=== PATIENT | male | born 1980 | race Caucasian/White ===

== ENCOUNTER 2019-11-27 13:17 | Emergency (ER) | payer BC, SELFPAY ==
--- NOTE | 2019-11-27 13:42 | PC.NURSE ---
LAB NOTIFIED OF COVID TEST ORDER
[2019-11-27 13:46] VITALS: BP 138/97; PULSE 107; RESP 20; TEMP 37.1; O2SAT 98; BMI 32.1
--- NOTE | 2019-11-27 13:51 | PC.NURSE ---
LAB AT BEDSIDE
--- NOTE | 2019-11-27 13:59 | HMH.EDUTC ---
[facility] [place] Disposition Clinical Impression: Exposure to COVID-19 virus Disposition: Home, Self-Care Condition on Discharge: Good Instructions: Preventing the Spread of Coronavirus Discharge Instructions Additional Instructions: You have been tested for COVID19. Please isolate yourself until these test results are received. Referrals: PCP,No [Primary Care Provider] - Time of Disposition: 14:03 Medical Decision Making - Jesus Inquiry Pt receiving controlled substance: No Vital Signs: 11/27/19 13:46 Temperature 98.7 F Temperature Source Oral Pulse Rate [Right Brachial] 107 H Respiratory Rate 20 Blood Pressure [Right Arm] 138/97 H Blood Pressure Mean [Right Arm] 110 Blood Pressure Source [Right Arm] Automatic Cuff Blood Pressure Position [Right Arm] Sitting 02 Sat by Pulse Oximetry 98 Oxygen Delivery Method Room Air Orders (Tests/Meds): ORDERS Category Date Time Status Coronavirus 19 Swab (OUTPT) Routine Lab 11/27/19 13:44 Ordered [facility] [place] HPI - General Stated complaint: fever,cough,loss of smell and taste Time Seen by Provider: 11/27/19 13:59 Mode of Arrival: Ambulatory Source of Information: Patient Limitations: No Limitations Description of Symptoms (Recalled from Triage Doc. by RN): PATIENT C/O FEVER, COUGH, SORE THROAT, BODY ACHES, LOWER BACK PAIN, AND DECREASED SMELL/TASTE SINCE SATURDAY. NO KNOWN DIRECT EXPOSURE TO COVID. WAS EXPOSED TO PATIENTS WITH COVID AT WORK HEENT Symptoms (Recalled from RN notes): Yes Resp Symptoms (Recalled from RN notes): Yes Skin Symptoms (Recalled from RN notes): No MS Symptoms (Recalled from RN notes): Yes Functional Status (Recalled from RN notes): WNL - History of Present Illness Provider Complaint: Fever, cough, body aches, sore throat and loss of taste and smell X 4 days. has been exposed to COVID19 thru work. He denies ear pain. Denies vomiting or diarrhea. Onset (ago): day(s) (4) Relieving factors: none Exacerbating factors: none Associated symptoms: cough, fever/chills Treatments prior to arrival: none - Related Data Home Medications Medication Instructions Recorded Confirmed Buprenorphine HCl/Naloxone HCl 0.75 each SL DAILY 11/27/19 11/27/19 [Suboxone 8 mg-2 mg Sl Film] Allergies Allergy/AdvReac Type Severity Reaction Status Date / Time amoxicillin [From Augmentin] Allergy Verified 11/27/19 13:50 clavulanic acid Allergy Verified 11/27/19 13:50 [From Augmentin] loratadine [From Claritin] Allergy Verified 11/27/19 13:50 Penicillins Allergy Verified 11/27/19 13:50 - Worker's Comp Is this a Worker's Comp case?: No H History - Hepatitis A Screen Drug use history?: No High risk sexual behaviors?: No History of sexually transmitted infection?: No Currently employed?: No Childcare worker?: No Do you have indoor plumbing?: Yes Do you have electricity?: Yes Attestation statement:: This patient has been screened for Hepatitis A risk factors. I have reviewed the patient's past medical history: Yes - Social History Alcohol Intake: never Occupational Status: other ROS Obtained: Yes All systems reviewed & no additional complaints - Constitutional Constitutional: Reports body ache, Reports fever(s), Denies lethargy, Denies malaise - Eyes Eyes: Denies eye discharge - ENT Ears, Nose, Mouth, and Throat: Denies nasal discharge, Denies sore throat, Denies vertigo/dizziness - Respiratory Respiratory: Yes cough, No dyspnea - Gastrointestinal Gastrointestingal: Denies: loose stools, vomiting Physical Exam - General General appearance: alert, in no apparent distress - Head Head exam: atraumatic, normocephalic, normal inspection - Eye Eye exam: Present: normal appearance, PERRL, EOMI - ENT ENT exam: Present: normal exam, normal oropharynx, mucous membranes moist, TM's normal bilaterally, normal external ear exam - Neck Neck exam: Present: normal inspection, full ROM, trachea midline. Absent:
[2019-11-27 14:08] VITALS: BP 138/97; PULSE 107; RESP 20; TEMP 37.1; O2SAT 98
== END 2019-11-27 14:10 | disposition home or self-care (01) ==
PROVIDERS: Emergency Provider Physician Assistant
DX: Z20.828 Contact with and (suspected) exposure to other viral communicable diseases (principal); R50.9 Fever, unspecified; R05 Cough; Z88.0 Allergy status to penicillin
CPT/HCPCS: 99201; U0003

== ENCOUNTER → 2020-10-25 11:04 | Outpatient (CLI) | payer BC, SELFPAY ==
--- NOTE | 2020-10-25 11:20 | XR_ITS ---
PROCEDURE: XR CHEST 2V CLINICAL HISTORY: CHEST PAIN COMPARISON: No exams were available for comparison FINDINGS: The cardiomediastinal silhouette and pulmonary vascularity are within normal limits. Minimal atelectatic or fibrotic change in the left lower lung zone. Lungs are otherwise clear.. No acute bony abnormalities. IMPRESSION: Minimal atelectatic or fibrotic change in the left lower lung otherwise negative Dictated by: Oneal Giles MD 10/25/2020 11:29 Oneal Giles MD in [place] 10/25/2020 11:29
[2020-10-25 11:39] LABS: Basophils # 0.1 K/mm3 (0-0.2); Basophils % 1.1 % (0.1-2.0); Eosinophils # 0.3 K/mm3 (0.0-0.4); Eosinophils % 4.9 % (0.1-12.0); Hemoglobin 14.3 g/dL (14.1-18.0); Lymphocytes # 1.8 K/mm3 (0.7-4.5); Lymphocytes % 34.6 % (10-50); Mean Corpuscular HGB Conc 33.2 g/dL (31.8-35.4); Mean Corpuscular Volume 90.5 fl (80-94); Mean Platelet Volume 7.1 fl (7.4-10.4); Monocytes # 0.4 K/mm3 (0.1-1.0); Monocytes % 7.3 % (1.7-9.3); Neutrophils # 2.8 K/mm3 (1.8-7.8); Neutrophils % 52.2 % (37.0-80.0); Platelet Count 286 K/mm3 (142-424); Red Blood Count 4.76 M/mm3 (4.60-6.20); Red Cell Distribution Width 12.5 % (11.5-17.5); White Blood Count 5.3 K/mm3 (4.8-10.8)
[2020-10-25 12:24] LABS: Chloride 102 mmol/L (98-107); Sodium 141 mmol/L (136-145)
[2020-10-25 12:25] LABS: Potassium 4.8 mmoL/L (3.5-5.1)
[2020-10-25 12:27] LABS: Alanine Aminotransferase 63 U/L (12-78); Albumin Level 4.6 g/dl (3.5-5.0); Albumin/Globulin Ratio 1.4 (1.1-1.8); Alkaline Phosphatase 85 U/L (38-126); Anion Gap 15.8 mEq/L (5-15); Aspartate Amino Transferase 50 U/L (17-59); Bilirubin,Total 0.5 mg/dl (0.2-1.3); Blood Urea Nitrogen 10 mg/dl (9-20); Calcium 9.5 mg/dl (8.4-10.2); Carbon Dioxide 28 mmol/L (22.0-30.0); Cholesterol 207 mg/dl (140-200); Estimated Glomerular Filt Rate 107 ml/min (>60); GFR (African American) 130 ML/MIN (>60); Globulin 3.3 g/dL (1.3-3.2); Glucose 119 mg/dl (74-100); Total Protein,Serum 7.9 g/dl (6.3-8.2); Triglycerides 77 mg/dl (30-150); VLDL Cholesterol 15 mg/dL (0-40)
[2020-10-25 12:28] LABS: HDL Cholesterol 41 mg/dl (40-60); Magnesium 1.9 mg/dl (1.6-2.3)
[2020-10-25 12:39] LABS: Direct LDL Cholesterol 151.83 mg/dL (100-129)
[2020-10-25 12:46] LABS: Hemoglobin A1C 5.9 % (4.0-6.0)
[2020-10-25 12:47] LABS: 25-OH Vitamin D, Total 18.9 ng/mL (30-100)
[2020-10-25 12:48] LABS: Triiodothryronine (T3) Uptake 29 % (23.5-40.5)
[2020-10-25 12:49] LABS: Free Thyroxine Index 3.5 ug/dL (5.93-13.13); T4 (Thyroxine) 11.9 ug/dl (5.53-11.0)
[2020-10-25 13:02] LABS: Thyroid Stimulating Hormone 5.11 uIU/mL (0.465-4.68)
[2020-10-25 13:56] LABS: Vitamin B12 536 pg/mL (239-931)
== END ==
PROVIDERS: Visit Provider Internal Medicine Adolescent Medicine
DX: R07.9 Chest pain, unspecified (principal); R00.0 Tachycardia, unspecified; R55 Syncope and collapse; E55.9 Vitamin D deficiency, unspecified
CPT/HCPCS: 36415; 71046; 80053; 80061; 82306; 82607; 83036; 83735; 84436; 84443; 84479; 85025

== ENCOUNTER → 2020-11-02 07:26 | Outpatient (CLI) | payer BC, SELFPAY ==
--- NOTE | 2020-11-02 | CA_ITS ---
APPROVED REPORT Exam: Exercise Treadmill Technologist: Mai Bond, Ht: 6 ft 2 in Wt: 272 lbs BSA: 2.48 m2 HR: 82 bpm BP: 172/105 mmHg Medical History Medications: Aspirin,,,,, Suboxone,,,,, Stress Test Details Test: Tigre HR Resting HR: 93 bpm Max Heart Rate (APMHR): 180.626909 bpm Max HR Achieved: 185 bpm Target HR (85% APMHR): 153.187234 bpm % of APMHR: 102.78 Recovery HR: 108 bpm BP Resting BP: 170/112 mmHg Max BP: 224/96 mmHg Recovery BP: 171.0/88.0 mmHg ECG Resting ECG: NSR, rightward axis, NST wave abns inferiorly, NS anterolateral ST abns. Clinical Exercise duration: 08:46 min Highest Stage Achieved: Exercise capacity: 10.1 METs Stress ECG Conclusion Exercised 8:46 on Tigre Protocol Max HR: 185 % of PM: 103% Max BP: 224/96 MET's: 10.1 Test stopped due to: SOA, fatigue Symptoms: L forearm pain. No CP. Arrythmias/Ectopy: Rare fusion beat. ST-T Changes: Exaggeration of baseline abns. Inferiorly and laterally. Conclusion: Non-diagnostic GXT, [place] images reported separately, Elevated resting BP. Test Summary REST . . . . . . . Sitting REST . . . . . . . Standing REST 04:12 0.0 0.0 93 . 170/112 . . Stage 1 01:00 10.0 1.7 120 . . . . Stage 1 02:00 10.0 1.7 143 . . . . Stage 1 03:00 10.0 1.7 143 . 198/100 . . Stage 2 01:00 12.0 2.5 158 . . . . Stage 2 02:00 12.0 2.5 165 . . . . Stage 2 03:00 12.0 2.5 174 . 208/ 96 . . Stage 3 01:00 14.0 3.4 176 . . . . Stage 3 02:00 14.0 3.4 179 . . . . Stage 3 02:46 14.0 3.4 184 . . . Stop exercise at 08:46 RECOVERY 01:00 0.0 0.0 158 . . . . RECOVERY 02:00 0.0 0.0 133 . 224/ 96 . . RECOVERY 03:00 0.0 0.0 117 . 179/108 . . RECOVERY 04:00 0.0 0.0 113 . 169/ 98 . . RECOVERY 05:00 0.0 0.0 107 . 169/ 98 . . RECOVERY 06:00 0.0 0.0 107 . 171/ 88 . . RECOVERY 06:13 0.0 0.0 104 . 171/ 88 . . Electronically signed by : Dickson Ortiz, 11/03/2020 13:36:49
--- NOTE | 2020-11-02 | CA_ITS ---
APPROVED REPORT EXAM: Comprehensive 2D, Doppler, and color-flow Echocardiogram Poacher Operator: Jacki Klein CRT Ht: 6 ft 2 in Wt: 272lbs BSA: 2.48 BP: 170/112 mmHg Indications: Chest Pain, Syncope 2D Dimensions LVOT 2.11 cm (M/F) 1.5-2.5 LA Volume 34.80 mL LA Volume Index 14.08 mL/m2 (M/F) 16-34 M-Mode Dimensions RVDd 2.72 cm (0.9-2.6) LA Diam 3.16 cm (1.9-4.0) LVDd 4.56 cm (3.5-5.7) Ao Diam 4.23 cm (2.0-3.7) LVDs 2.35 cm (3.5-5.7) IVSd 1.41 cm (0.6-1.1) PWd 0.91 cm (0.6-1.1) EF (Teich) 80.00% FS 48.50% EDV (Teich) 95.40 mL TAPSE 2.47 (<1.7) ESV (Teich) 19.10 mL LV Diastology E Decel Time 220.00 (160-240 msec) E/A Ratio 1.19 MED E' 7.80 (< 7 cm/sec) MED A' 9.70 cm/s E'/MED E' Ratio 9.49 (>14) LAT E' 10.80 (<10 cm/sec) LAT A' 10.00 cm/s E/LAT E' Ratio 6.85 (>14) Aortic Valve AO Peak GR. 4.70 mmHg Mitral Valve MV A Velocity 62.00 (40-130 cm/s) E/A Ratio 1.19 MV Decel. Time 220.00 (160-240 ms) Pulmonary Valve PV Peak Velocity 97.00 (50-150 cm/s) Tricuspid Valve TR P. Velocity 210.00 cm/s RAP Estimate 10.00 mmHg RVSP 27.60 mmHg Left Ventricle Left atrium is normal size, left ventricle is normal size, there is no concentric left ventricular hypertrophy, visually estimated ejection fraction 55% with no regional wall motion abnormality, diastolic parameters are within normal range. Right Ventricle Right atrium and right ventricle are normal size and contractility. Aortic Valve Aortic valve is grossly normal, there is no aortic stenosis or aortic insufficiency. Mitral Valve Mitral valve is grossly normal, there is trace mitral regurgitation. Tricuspid Valve Tricuspid valve grossly normal, there is trace tricuspid regurgitation, tricuspid regurgitation jet velocity is inadequate for calculation of the right ventricular systolic pressure. Pulmonic Valve Pulmonic valve is poorly visualized. Great Vessels Aortic root is normal size. Pericardium No significant pericardial effusion noted. Conclusion 1. Normal left ventricular size, preserved left ventricular systolic function, visually estimated ejection fraction 55% with no regional wall motion abnormality, diastolic parameters are within normal range. 2. Trace mitral and tricuspid regurgitation. 3. No significant pericardial effusion noted. Electronically signed by : Dickson Ortiz, 11/03/2020 16:06:12
--- NOTE | 2020-11-02 07:31 | NM_ITS ---
APPROVED REPORT Exam: Nuclear Stress Test Indication: HTN, TOB USE, FM HX,C.P., SOB, PALPITATIONS Patient Location: Outpatient Stress Tech: Mai [facility] Tech:Grecia Mcintosh, ARRT RT (R)(N)(M) Ht: 6 ft 2 in Wt: 272 lbs HR: 82 bpm BP: 171/105 mmHg BSA: 2.48 m2 BMI: 34.9 History: HTN, TOB USE, FM HX,C.P., SOB, PALPITATIONS Procedure: Patient exercised on Tigre protocol 8:46 minutes and sec, resting heart rate 82 bpm, resting blood pressure 171/105 mmHg, with exercise maximum heart rate achived was 184 bpm which is 103 % of the maximum predicted heart rate and blood pressure was 208/96 mmHg. Test was stopped due to lt forearm pain. Patient denied any complaint of chest pain. Patient has Good exercise capacity, achieved 10.1 METs of workload on treadmill, the blood pressure response to exercise was Hypertensive. Electrocardiogram Resting electrocardiogram showed sinus rhythm nonspecific ST-T changes, with exercise there is less than 1.[address] segment depression noted from the baseline EKG. The EKG portion of the exercise Myoview was nondiagnostic due to baseline abnormal EKG. Cardiac Stress and Resting SPECT Images: Cardiac Stress and Resting SPECT images were obtained using technetium 99m Myoview 31.2 mCi stress and 10.37 mCi at rest. Gated SPECT for analysis of segmental wall motion and calculation of the ejection fraction also done. Prone images were also obtained. Cardiac stress and rest SPECT images show uniform myocardial activity without segmental perfusion abnormality, computer derived ejection fraction is 68% with no regional wall motion abnormality, right ventricle is normal size and contractility. Conclusion: 1. The EKG portion of the exercise sestamibi is nondiagnostic due to baseline abnormal EKG, patient has good exercise capacity achieved 10.1 METs of workload on treadmill, the blood pressure response to exercise was hypertensive, there was no exercise-induced chest discomfort. 2. No scintigraphic evidence of reversible ischemia seen, computer derived ejection fraction is 68% with no regional wall motion abnormality, right ventricle is normal size and contractility. 3. Normal exercise Myoview study except for hypertensive blood pressure response. Electronically signed by : Dickson Ortiz, 11/03/2020 13:40:17
--- NOTE | 2020-11-02 09:14 | HMH.ITSHM ---
Current Home Medications as stated by this patient Yonny Alves or bilingual inside sales representative. []buprenorphine
== END ==
LOC: RAD 07:27
PROVIDERS: PCP Internal Medicine Adolescent Medicine; Visit Provider Internal Medicine Adolescent Medicine
DX: R07.9 Chest pain, unspecified (principal); R00.0 Tachycardia, unspecified
CPT/HCPCS: 78452; 93017; 93306; A9502

== ENCOUNTER 2021-04-03 06:58 | Emergency (ER) | payer BC, SELFPAY ==
[2021-04-03 07:08] VITALS: BP 124/88; PULSE 81; RESP 16; TEMP 37; O2SAT 98; BMI 35.9
[2021-04-03 07:24] LABS: Microscopic, Urine URINE MICROSCOPIC (MICROSCOPIC)
[2021-04-03 07:28] LABS: Basophils % 0.5 % (0.1-2.0); Eosinophils # 0.1 K/mm3 (0.0-0.4); Eosinophils % 1.4 % (0.1-12.0); Hemoglobin 13.5 g/dL (14.1-18.0); Lymphocytes # 1.1 K/mm3 (0.7-4.5); Lymphocytes % 16.5 % (10-50); Mean Corpuscular HGB Conc 33.7 g/dL (31.8-35.4); Mean Corpuscular Hemoglobin 30.5 pg (27.0-31.2); Mean Corpuscular Volume 90.6 fl (80-94); Mean Platelet Volume 7.8 fl (7.4-10.4); Monocytes # 0.4 K/mm3 (0.1-1.0); Monocytes % 5.8 % (1.7-9.3); Neutrophils % 75.8 % (37.0-80.0); Platelet Count 262 K/mm3 (142-424); Red Blood Count 4.42 M/mm3 (4.60-6.20); Red Cell Distribution Width 12.7 % (11.5-17.5); White Blood Count 6.6 K/mm3 (4.8-10.8)
[2021-04-03 07:37] LABS: Alanine Aminotransferase 44 U/L (12-78); Albumin/Globulin Ratio 1.3 (1.1-1.8); Alkaline Phosphatase 76 U/L (38-126); Anion Gap 11.7 mEq/L (5-15); Aspartate Amino Transferase 37 U/L (17-59); Bilirubin,Total 0.5 mg/dl (0.2-1.3); Blood Urea Nitrogen 10 mg/dl (9-20); Calcium 9.2 mg/dl (8.4-10.2); Carbon Dioxide 29 mmol/L (22.0-30.0); Chloride 101 mmol/L (98-107); Creatinine Clearance Estimated 126 mL/min (50-200); Estimated Glomerular Filt Rate 56 ml/min (>60); GFR (African American) 68 ML/MIN (>60); Globulin 3.1 g/dL (1.3-3.2); Glucose 130 mg/dl (74-100); Potassium 3.7 mmoL/L (3.5-5.1); Sodium 138 mmol/L (136-145); Total Protein,Serum 7.1 g/dl (6.3-8.2)
[2021-04-03 07:39] LABS: Appearance,Urine CLEAR (Clear); Blood, Urine 3+ (Negative); Color,Urine YELLOW (Yellow); Glucose,Urine (UA) Negative (Negative); Ketones,Urine TRACE (Negative); Leukocyte Esterase,Urine TRACE (Negative); Nitrate,Urine Negative (Negative); PH,Urine 5.5 (5.0-8.5); Protein,Urine 1+ (Negative); Specific Gravity, Urine >= 1.030 (1.005-1.030); Urobilinogen,Urine 0.2 EU/dl (0.2)
[2021-04-03 07:42] LABS: Bilirubin,Urine 1+ (Negative)
--- NOTE | 2021-04-03 08:17 | HMH.EDGENADL ---
ED Disposition Clinical Impression: Nephrolithiasis Disposition: Home, Self-Care Condition on Discharge: Good Additional Instructions: Drink plenty of water, continue taking tamsulosin, strain urine, continue taking tylenol and motrin for pain, zofran for nausea/vomiting, return to ED with new or worsening symptoms. Follow up with PCP for any persisting symptoms. Prescriptions: Oxycodone HCl [Oxycodone 5mg tab (IR)] 5 mg PO Q8 PRN 2 Days #6 tab PRN Reason: Severe Pain Prescription Printed Ondansetron [Zofran 4mg ODT] 4 mg PO Q6 PRN 3 Days #12 tab PRN Reason: Nausea And Vomiting Transmission Status: Received by [facility] #[id number] Referrals: Zay Levin MD [Primary Care Provider] - - Critical Care Critical Care Time: No Attestation: On 04/03/21, the high probability of a clinically significant, sudden or life threatening deterioration of the following system(s) required my full and direct attention, intervention and personal management. The time I documented below is in addition to time spent performing reported procedures but includes the following listed in this critical care notation. Medical Decision Making - Medical Records Medical records reviewed: Yes: I reviewed the patient's medical records. - Jesus Inquiry Pt receiving controlled substance: No Vital Signs: 04/03/21 07:08 Temperature 98.6 F Temperature Source Oral Pulse Rate [Radial] 81 Respiratory Rate 16 Blood Pressure [Right Arm] 124/88 Blood Pressure Mean [Right Arm] 100 Blood Pressure Position [Right Arm] Sitting 02 Sat by Pulse Oximetry 98 Oxygen Delivery Method Room Air - Lab Data Lab Results 04/03/21 07:15: WBC 6.6, RBC 4.42 L, Hgb 13.5 L, Hct 40.0 L, MCV 90.6, MCH 30.5, MCHC 33.7, RDW 12.7, Plt Count 262, MPV 7.8, Neut % (Auto) 75.8, Lymph % (Auto) 16.5, Upson % (Auto) 5.8, Eos % (Auto) 1.4, Baso % (Auto) 0.5, Neut # (Auto) 5.0, Lymph # (Auto) 1.1, Upson # (Auto) 0.4, Eos # (Auto) 0.1, Baso # (Auto) 0.0 04/03/21 07:15: Sodium 138, Potassium 3.7, Chloride 101, Carbon Dioxide 29, Anion Gap 11.7, BUN 10, Creatinine 1.40 H, Estimated Creat Clear 126, Estimated GFR 56 L, Est GFR ( Amer) 68, Glucose 130 H, Calcium 9.2, Total Bilirubin 0.5, AST 37, ALT 44, Alkaline Phosphatase 76, Total Protein 7.1, Albumin 4.0, Globulin 3.1, Albumin/Globulin Ratio 1.3 04/03/21 07:15: Urine Color Yellow, Urine Appearance Clear, Urine pH 5.5, Ur Specific [place] >= 1.030, Urine Protein 1+, Urine Glucose (UA) Negative, Urine Ketones Trace, Urine Blood 3+, Urine Nitrate Negative, Urine Bilirubin 1+ A, Urine Urobilinogen 0.2, Ur Leukocyte Esterase Trace, Urine RBC 10-20, Urine WBC 3-5, Ur Squamous Epith Cells 3-5, Urine Bacteria None Result diagrams: 04/03/21 07:15 04/03/21 07:15 Orders (Tests/Meds): ED MEDICATIONS Discontinued Medications Generic Name Dose Route Start Last Admin Trade Name Freq PRN Reason Stop Dose Admin Sodium Chloride 1,000 mls @ 999 mls/hr 04/03/21 07:15 04/03/21 07:17 Sod Chlor 0.9% 1000ml Bag IV 04/03/21 08:15 999 mls/hr .Q1H1M CHRISTINE Administration Ketorolac Tromethamine 30 mg 04/03/21 07:12 04/03/21 07:16 Ketorolac 30mg/Ml Vial IV 04/03/21 07:13 30 mg ONCE ONE Administration Ondansetron HCl 4 mg 04/03/21 07:12 04/03/21 07:16 Ondansetron 4mg/2ml Vial IV 04/03/21 07:13 4 mg ONCE ONE Administration Medical Decision Narrative: 40-year-old male with past medical history of hypothyroidism, prior kidney stones presenting with mild left flank pain, suprapubic pain. Differential diagnoses include nephrolithiasis, gastroenteritis, urinary tract infection, GIUSEPPE, appendicitis. Given this will include physical exam, CMP, CBC, urinalysis. Reviewed labs, urinalysis, CT scan from outside hospital. Vital signs currently stable. Patient had a 3 mm stone which has high rate of spontaneous passage roughly 3 to 4 days ago. Current pain level 2 out of 10, physical exam overall reass
[2021-04-03 09:48] VITALS: BP 132/74; PULSE 78; RESP 16; TEMP 36.6; O2SAT 98
== END 2021-04-03 09:49 | disposition home or self-care (01) ==
PROVIDERS: Emergency Provider Emergency Medicine; PCP Internal Medicine Adolescent Medicine
DX: N20.0 Calculus of kidney (principal); Z87.442 Personal history of urinary calculi; E03.9 Hypothyroidism, unspecified
CPT/HCPCS: 80053; 81001; 85025; 96365; 96375; 96376; 99283; J2405

== ENCOUNTER → 2022-09-06 14:43 | Outpatient (CLI) | payer BC, SELFPAY | LOC: SL 14:43 | PROVIDERS: PCP Family Medicine; Visit Provider Family Medicine | DX: G47.30 Sleep apnea, unspecified (principal); R06.83 Snoring; I10 Essential (primary) hypertension; R53.83 Other fatigue; E66.9 Obesity, unspecified | CPT/HCPCS: G0399 ==

== ENCOUNTER 2022-11-16 23:26 | Emergency (ER) | payer BC, SELFPAY ==
[2022-11-16 23:29] VITALS: BP 156/89; PULSE 82; RESP 20; TEMP 36.8; O2SAT 98; BMI 38.5
--- NOTE | 2022-11-16 23:39 | CT_ITS ---
PROCEDURE INFORMATION: Exam: CT Abdomen And Pelvis Without Contrast Exam date and time: 11/16/2022 11:49 PM Age: 42 years old Clinical indication: Abdominal pain; Flank; Left; Additional info: Left flank pain TECHNIQUE: Imaging protocol: Computed tomography of the abdomen and pelvis without contrast. Radiation optimization: All CT scans at this facility use at least one of these dose optimization techniques: automated exposure control; mA and/or kV adjustment per patient size (includes targeted exams where dose is matched to clinical indication); or iterative reconstruction. REPORTING DATA: Count of CT and Cardiac NM exams in prior 12 months: This patient has received 0 known CTs and 0 known cardiac nuclear medicine studies in the 12 months prior to the current study. COMPARISON: CR XR CHEST 2V 10/25/2020 11:21 AM FINDINGS: Lungs: Punctate calcified granuloma in the left lower lobe. Liver: Low-density liver compatible with fatty infiltration. Fatty sparing adjacent to the gallbladder fossa. Mild enlargement of the liver measuring 19.8 cm in length. Gallbladder and bile ducts: See Liver finding. Pancreas: Unremarkable. Spleen: Unremarkable. Adrenal glands: Unremarkable. Kidneys and ureters: Punctate right nephrolithiasis without right hydronephrosis. Calculus measuring 3 mm at the left ureterovesical junction associated with mild left hydroureteronephrosis. 5 mm nonobstructing calculus at the left superior renal pole. Stomach and bowel: Unremarkable. No bowel obstruction. Appendix: No evidence of appendicitis. Intraperitoneal space: Unremarkable. Vasculature: Minimal atherosclerotic calcifications in the abdomen and pelvis. Lymph nodes: Unremarkable. Urinary bladder: Unremarkable as visualized. Reproductive: Unremarkable as visualized. Bones/joints: No acute osseous abnormality. Soft tissues: Unremarkable. IMPRESSION: 1. Obstructing 3 mm calculus at the left ureterovesical junction with mild left hydroureteronephrosis. 2. Mild hepatomegaly with hepatic steatosis.
--- NOTE | 2022-11-16 23:41 | HMH.EDGENADL ---
Discharge Plan Disposition Patient Disposition: Home, Self-Care Condition: Good Prescriptions Prescriptions: New ondansetron 4 mg tablet,disintegrating 4 mg PO Q6H PRN (Reason: nausea and vomiting) Qty: 30 0RF tamsulosin 0.4 mg capsule 0.4 mg PO DAILY Qty: 14 0RF No Action buprenorphine-naloxone 1 EACH film 0.75 each SL DAILY oxycodone 5 MG tablet 5 mg PO Q8 PRN (Reason: Severe Pain) 2 Days Qty: 6 0RF ondansetron 4 MG tablet,disintegrating 4 mg PO Q6 PRN (Reason: Nausea And Vomiting) 3 Days Qty: 12 0RF Referrals Follow up/Referrals: Enrique Polo MD [Primary Care Provider] - See instructions Activity Restrictions/Add. Instructions Additional Instructions/Restrictions: Please follow-up with your primary care provider. Please return to the emergency department if you develop any new or worsening symptoms or become concerned for your health. Please take Tylenol and ibuprofen as needed for pain. Please take Zofran as needed for nausea. Please take tamsulosin as it may help you pass your kidney stone. Clinical Impressions Clinical Impression: Ureterolithiasis, Hydronephrosis concurrent with and due to calculi of kidney and ureter Discharge ED Provider: Addy Huerta Adult HPI General Chief complaint: PAIN Stated complaint: Left side pain with nausea Time Seen by Provider: 11/16/22 23:31 Mode of Arrival: Ambulatory Source of Information: Patient Limitations: No Limitations Description of Symptoms (Recalled from ER Triage Doc. by RN): Pt presents with left flank pain associated with N/V and SOA approx 45 min ago. Pt has hx of kidney stones, last obstruction 1-2 yrs ago. History of Present Illness HPI narrative: 42-year-old male history of prior kidney stone approximately1 year ago presents with acute onset of left-sided flank pain and urinary urgency. Patient reports this feels similar to kidney stone he has had in the past. Required no operative intervention at that time. Reports symptoms started this evening and have worsened. Reports he feels nauseous but has not had significant vomiting. Denies any fevers chills. Related Data Home Medications Medication Instructions Recorded Confirmed buprenorphine 8 mg-naloxone 2 mg 0.75 each SL DAILY ADDICTION 11/27/19 11/27/19 sublingual film Previous Rx's Medication Instructions Recorded ondansetron 4 mg disintegrating 4 mg PO Q6 PRN Nausea And Vomiting 04/03/21 tablet 3 days #12 tabs oxycodone 5 mg tablet 5 mg PO Q8 PRN Severe Pain 2 days 04/03/21 #6 tabs ondansetron 4 mg disintegrating 4 mg PO Q6H PRN nausea and 11/17/22 tablet vomiting #30 tabs tamsulosin 0.4 mg capsule 0.4 mg PO DAILY #14 caps 11/17/22 Allergies Allergy/AdvReac Type Severity Reaction Status Date / Time amoxicillin [From Augmentin] Allergy Verified 11/27/19 13:50 clavulanic acid Allergy Verified 11/27/19 13:50 [From Augmentin] loratadine [From Claritin] Allergy Verified 11/27/19 13:50 Penicillins Allergy Verified 11/27/19 13:50 PFSH PFS Disclaimer: The information contained in this section may have been updated after the patient was seen, as this information can be updated by other users. Social History Smoking Status: Current every day smoker alcohol intake: never current occupational status: other Travel in the last 8 weeks: None ROS Obtained: Yes All systems reviewed & no additional complaints except as documented Physical Exam General General appearance: alert and in distress Head Head exam: atraumatic and normocephalic Eye Eye exam: Present normal appearance, PERRL and EOMI ENT ENT exam: Present normal oropharynx and normal external ear exam Neck Neck exam: Present normal inspection and full ROM Chest Chest inspection: Present normal inspection and symmetric chest wall rise; Absent tenderness Respiratory Respiratory exam: Present normal lung sounds bilaterally; Absent respiratory distress Car
[2022-11-16 23:52] LABS: Basophils # 0.1 K/mm3 (0-0.2); Basophils % 0.5 % (0.1-2.0); Eosinophils # 0.4 K/mm3 (0.0-0.4); Hematocrit 43.3 % (42.0-52.0); Lymphocytes # 3.5 K/mm3 (0.7-4.5); Lymphocytes % 32.7 % (10-50); Mean Corpuscular HGB Conc 32.4 g/dL (31.8-35.4); Mean Corpuscular Hemoglobin 30.2 pg (27.0-31.2); Mean Corpuscular Volume 93.3 fl (80-94); Mean Platelet Volume 8.2 fl (7.4-10.4); Monocytes # 0.6 K/mm3 (0.1-1.0); Monocytes % 5.6 % (1.7-9.3); Neutrophils % 57.1 % (37.0-80.0); Platelet Count 309 K/mm3 (142-424); Red Blood Count 4.64 M/mm3 (4.60-6.20); Red Cell Distribution Width 13.4 % (11.5-17.5); White Blood Count 10.5 K/mm3 (4.8-10.8)
[2022-11-16 23:55] LABS: Chloride 101 mmol/L (98-107); Potassium 3.9 mmoL/L (3.5-5.1); Sodium 141 mmol/L (136-145)
[2022-11-16 23:58] LABS: Alanine Aminotransferase 81 U/L (12-78); Albumin Level 4.4 g/dl (3.5-5.0); Albumin/Globulin Ratio 1.1 (1.1-1.8); Alkaline Phosphatase 80 U/L (38-126); Anion Gap 12.9 mEq/L (5-15); Aspartate Amino Transferase 66 U/L (17-59); Bilirubin,Total 0.5 mg/dl (0.2-1.3); Blood Urea Nitrogen 11 mg/dl (9-20); Calcium 9.8 mg/dl (8.4-10.2); Carbon Dioxide 31 mmol/L (22.0-30.0); Creatinine Clearance Estimated 206 mL/min (50-200); Estimated Glomerular Filt Rate 93 ml/min (>60); GFR (African American) 112 ML/MIN (>60); Glucose 118 mg/dl (74-100); Total Protein,Serum 8.4 g/dl (6.3-8.2)
[2022-11-17 00:08] LABS: Microscopic, Urine URINE MICROSCOPIC (MICROSCOPIC)
[2022-11-17 00:26] LABS: Appearance,Urine SL CLOUDY (Clear); Bilirubin,Urine Negative (Negative); Blood, Urine 3+ (Negative); Color,Urine YELLOW (Yellow); Glucose,Urine (UA) Negative (Negative); Ketones,Urine Negative (Negative); Leukocyte Esterase,Urine Negative (Negative); Nitrate,Urine Negative (Negative); PH,Urine 5.5 (5.0-8.5); Protein,Urine Negative (Negative); Specific Gravity, Urine >= 1.030 (1.005-1.030); Urobilinogen,Urine 0.2 EU/dl (0.2)
[2022-11-17 00:36] LABS: RBC,Urine 20-50 #/hpf (0-3)
[2022-11-17 00:37] LABS: WBC,Urine Occasional #/hpf (0-3)
[2022-11-17 00:38] LABS: Bacteria,Urine Trace /lpf
[2022-11-17 00:47] VITALS: BP 139/85; PULSE 82; RESP 18; TEMP 36.8
== END 2022-11-17 00:53 | disposition home or self-care (01) ==
PROVIDERS: Emergency Provider Emergency Medicine; PCP Family Medicine
DX: N20.2 Calculus of kidney with calculus of ureter (principal); N13.30 Unspecified hydronephrosis; R10.9 Unspecified abdominal pain
CPT/HCPCS: 74176; 80053; 81001; 85025; 96361; 96374; 96375; 99285; J2405

== ENCOUNTER 2023-08-12 11:16 | Outpatient (CLI) | payer BC, SELFPAY ==
[2023-08-12 11:43] LABS: Basophils # 0.1 K/mm3 (0-0.2); Basophils % 1.3 % (0.1-2.0); Eosinophils # 0.3 K/mm3 (0.0-0.4); Eosinophils % 3.5 % (0.1-12.0); Hematocrit 43.2 % (42.0-52.0); Hemoglobin 14.4 g/dL (14.1-18.0); Lymphocytes % 28.1 % (10-50); Mean Corpuscular HGB Conc 33.2 g/dL (31.8-35.4); Mean Corpuscular Volume 99.2 fl (80-94); Mean Platelet Volume 8.2 fl (7.4-10.4); Monocytes # 0.4 K/mm3 (0.1-1.0); Monocytes % 5.4 % (1.7-9.3); Neutrophils # 4.4 K/mm3 (1.8-7.8); Neutrophils % 61.8 % (37.0-80.0); Platelet Count 267 K/mm3 (142-424); Red Blood Count 4.35 M/mm3 (4.60-6.20); Red Cell Distribution Width 13.4 % (11.5-17.5); White Blood Count 7.1 K/mm3 (4.8-10.8)
[2023-08-12 12:54] LABS: Prostate Specific Ag Screen 0.4 ng/ml (0.0-4.0)
[2023-08-13 08:33] LABS: Sex Hormone Binding Globulin 25.6 nmol/L (16.5-55.9); Testosterone,Total 154 ng/dL (264-916)
[2023-08-18 00:07] LABS: Testosterone,Free 3.7 pg/mL (6.8-21.5)
== END 2023-08-12 23:59 | disposition home or self-care (01) ==
LOC: LAB 11:17
PROVIDERS: PCP Family Medicine; Visit Provider Urology
DX: N20.0 Calculus of kidney (principal); E29.1 Testicular hypofunction
CPT/HCPCS: 84270; 84402; 84403; 85025; G0103

== ENCOUNTER 2023-08-15 14:10 | Outpatient (CLI) | payer BC, SELFPAY ==
--- NOTE | 2023-08-15 14:10 | US_ITS ---
FINAL REPORT CLINICAL HISTORY: .abnormal labs-- hx of stones FINDINGS: RENAL ULTRASOUND Ultrasound images of the kidneys were obtained. The right kidney measures 10.7 cm in length. The left kidney measures 12.2 cm in length. There is no renal cortical thinning. Small echogenic shadowing foci in both kidneys are consistent with stones. There is no hydronephrosis. IMPRESSION: Bilateral nephrolithiasis with no hydronephrosis. Reviewed, Interpreted and Dictated by Luis Eduardo Rodríguez MD Transcribed by Eleonora Norris Authenticated and [facility]
--- NOTE | 2023-08-15 14:13 | XR_ITS ---
FINAL REPORT CLINICAL HISTORY: renal stones HX LEFT SIDED STONE, C/O LEFT SIDED FLANK PAIN FINDINGS: A single view of the abdomen was obtained. There is a nonobstructive bowel gas pattern. There are no abnormally dilated loops of small bowel. Overlying stool obscures the renal shadows. A small stone is seen in the superior pole of the left kidney. IMPRESSION: Left nephrolithiasis. Reviewed, Interpreted and Dictated by Luis Eduardo Rodríguez MD Transcribed by Eleonora Norris Authenticated and [facility]
== END 2023-08-15 23:59 | disposition home or self-care (01) ==
LOC: RAD 14:10
PROVIDERS: PCP Family Medicine; Visit Provider Urology
DX: N20.0 Calculus of kidney (principal); E29.1 Testicular hypofunction
CPT/HCPCS: 74018; 76770

== ENCOUNTER 2023-09-30 14:50 | Outpatient (CLI) | payer BC, SELFPAY ==
[2023-09-30 16:41] LABS: Thyroid Stimulating Hormone 3.84 uIU/mL (0.465-4.68)
[2023-10-02 07:13] LABS: Estradiol 42.6 pg/mL (7.6-42.6); Sex Hormone Binding Globulin 29.4 nmol/L (16.5-55.9)
[2023-10-02 08:22] LABS: LH 5.4 mIU/mL (1.7-8.6); Prolactin 10.4 ng/mL (3.9-22.7); Testosterone,Total 156 ng/dL (264-916)
[2023-10-02 09:41] LABS: FSH 6.4 mIU/mL (1.5-12.4)
[2023-10-07 11:10] LABS: Testosterone,Free 2.7 pg/mL (6.8-21.5)
[2023-10-11 11:05] LABS: Dihydrotestosterone DHT 22
== END 2023-09-30 23:59 | disposition home or self-care (01) ==
LOC: LAB 14:51
PROVIDERS: PCP Family Medicine; Visit Provider Urology
DX: R82.998 Other abnormal findings in urine (principal); E29.1 Testicular hypofunction
CPT/HCPCS: 36415; 82670; 83001; 83002; 84146; 84270; 84402; 84403; 84443